=== PATIENT | male | born 1975 | race African-American/Black ===

== ENCOUNTER 2018-12-06 06:59 | Day surgery (SDC) | payer OTHER ==
--- OUTSIDE RECORDS SUMMARY | 2018-12-06 07:01 | XMS REPORT ---
:1975 Author Organization eClinicalWorks Care Team Providers Name Role Phone Zaheer Potts Provider Role Unavailable Allergies, Adverse Reactions, Alerts Substance Reaction Event Type Motrin burning stomach Drug Allergy Problems Problem Type Condition Code Onset Dates Condition Status Problem Mild intermittent asthma in adult J45.20 Active without complication Assessment Elevated blood pressure reading in R03.0 Active office with white coat syndrome, without diagnosis of hypertension Problem Pure hypercholesterolemia E78.00 Active Assessment Mild intermittent asthma in adult J45.20 Active without complication Assessment Seasonal allergic rhinitis, J30.2 Active unspecified trigger Assessment Pure hypercholesterolemia E78.00 Active Assessment Encounter for general adult medical Z00.00 Active examination without abnormal findings Medications Medication Code Code Instructions Start End Status Dosage System Date Date Vitamin B12 [facility] 88789710090 100 MCG Orally Active not defined Centrum [facility] 59309667230 - Orally Active not Specialist defined Energy Results No Known Results Summary Purpose eClinicalWorks Submission
--- OUTSIDE RECORDS SUMMARY | 2018-12-06 07:02 | XMS REPORT ---
:1975 Author Organization eClinicalWorks Care Team Providers Name Role Phone Zaheer Potts Provider Role Unavailable Allergies, Adverse Reactions, Alerts Substance Reaction Event Type Motrin burning stomach Drug Allergy Problems Problem Type Condition Code Onset Dates Condition Status Problem Pure hypercholesterolemia E78.00 Active Problem Mild intermittent asthma in adult J45.20 Active without complication Problem Marijuana abuse, continuous F12.10 Active Assessment Mild intermittent asthma in adult J45.20 Active without complication Assessment Acute eczema L30.9 Active Assessment Marijuana abuse, continuous F12.10 Active Medications Medication Code Code Instructions Start End Status Dosage System Date Date Vitamin B12 [facility] 20962280875 100 MCG Orally Active not defined Centrum [facility] 84269830859 - Orally Active not Specialist defined Energy Acyclovir [facility] 17433589503 800 MG Orally April 10, Active 1 tablet Five times a day 2017 Sertraline HCl [place] 63439502320 50 MG Orally April 10, Active 1 tablet Once a day 2017 Montelukast [facility] 05378407021 10 MG Orally Jun 21, Active 1 tablet Sodium Once a day 2017 Results No Known Results Summary Purpose eClinicalWorks Submission
--- OUTSIDE RECORDS SUMMARY | 2018-12-06 07:02 | XMS REPORT ---
:1975 Author Organization eClinicalWorks Care Team Providers Name Role Phone Zaheer Potts Provider Role Unavailable Allergies No Known Allergies Problems Problem Type Condition Code Onset Dates Condition Status Problem Pure hypercholesterolemia E78.00 Active Problem Mild intermittent asthma in adult J45.20 Active without complication Problem Marijuana abuse, continuous F12.10 Active Medications Medication Code Code Instructions Start End Status Dosage System Date Date Azithromycin [facility] 38922738512 500 MG Orally May 29, Jun 03, Active as directed Once a day 2017 2017 Results No Known Results Summary Purpose eClinicalWorks Submission
--- OUTSIDE RECORDS SUMMARY | 2018-12-06 07:02 | XMS REPORT ---
:1975 Author Organization eClinicalWorks Care Team Providers Name Role Phone Zaheer Potts Provider Role Unavailable Allergies, Adverse Reactions, Alerts Substance Reaction Event Type Motrin burning stomach Drug Allergy Problems Problem Type Condition Code Onset Dates Condition Status Assessment Vertigo R42 Active Problem Pure hypercholesterolemia E78.00 Active Problem Mild intermittent asthma in adult J45.20 Active without complication Problem Marijuana abuse, continuous F12.10 Active Assessment Mild intermittent asthma in adult J45.20 Active without complication Assessment Nausea R11.0 Active Assessment Marijuana abuse, continuous F12.10 Active Medications Medication Code Code Instructions Start End Status Dosage System Date Date Bismuth [facility] 40515666338 262 MG Orally Oct 12, Dec 11, Active 2 tablets Subsalicylate Four times a 2017 2019 as needed day Sertraline HCl [facility] 47758332871 50 MG Orally Active 1 tablet Once a day Centrum [facility] 15117248175 - Orally Active not defined Specialist [employer] Acyclovir [place] 24696083523 800 MG Orally April 10, Active 1 tablet Five times a 2018 day Acidophilus [facility] 15885589833 - Orally daily Oct 12March Active as directed Probiotic 2017, Complex 2019 Montelukast [facility] 46805884018 10 MG Orally Jun 21, Active 1 tablet Sodium Once a day 2018 Vitamin B12 [facility] 54469065850 100 MCG Orally Active not defined Results No Known Results Summary Purpose eClinicalWorks Submission
--- OUTSIDE RECORDS SUMMARY | 2018-12-06 07:02 | XMS REPORT ---
:1975 Author Organization eClinicalWorks Care Team Providers Name Role Phone Zaheer Potts Provider Role Unavailable Allergies No Known Allergies Problems Problem Type Condition Code Onset Dates Condition Status Problem Pure hypercholesterolemia E78.00 Active Problem Mild intermittent asthma in adult J45.20 Active without complication Problem Marijuana abuse, continuous F12.10 Active Assessment Marijuana abuse, continuous F12.10 Active Assessment Herpes zoster without complication B02.9 Active Medications Medication Code Code Instructions Start End Status Dosage System Date Date Centrum [facility] 62000172899 - Orally Active not Specialist defined Energy Vitamin B12 [facility] 28276629168 100 MCG Orally Active not defined Sertraline HCl [facility] 56976438806 50 MG Orally April 10, Active 1 tablet Once a day 2017 Acyclovir [facility] 45113240775 800 MG Orally April 10, Active 1 tablet Five times a day 2017 Results No Known Results Summary Purpose eClinicalWorks Submission
--- OUTSIDE RECORDS SUMMARY | 2018-12-06 07:02 | XMS REPORT ---
[...] in adult J45.20 Active without complication Assessment Marijuana abuse, continuous F12.10 Active Assessment Pure hypercholesterolemia E78.00 Active Medications Medication Code Code Instructions Start End Status Dosage System Date Date Sertraline HCl [facility] 14956544342 50 MG Orally April 10, Active 1 tablet Once a day 2017 Centrum [facility] 94305299078 - Orally Active not Specialist defined Energy Acyclovir [facility] 91699699436 800 MG Orally April 10, Active 1 tablet Five times a day 2018 Vitamin B12 [facility] 39211273583 100 MCG Orally Active not defined Results No Known Results Summary Purpose eClinicalWorks Submission
[2018-12-06] MEDS ORDERED: Ringers Lactate 1,000 ML IV ONE (07:25)
[2018-12-06] MEDS ORDERED: LIDOCAINE 1% MPF 5 ML VIAL ONE (08:09)
[2018-12-06] MEDS ORDERED: PROPOFOL 200 MG/20 ML VIAL IV ONE (08:09)
--- NOTE | 2018-12-06 20:06 | OP ---
Surgeon: Jeffrey Reina MD Procedure Performed: Esophagogastroduodenoscopy. Indication For Procedure: Nausea, vomiting, abdominal pain, and change in bowel habits. Plan For Anesthesia: Monitored anesthesia care. Complexity: Average. Technique: After obtaining informed consent from the patient explaining risks and complications, whi ch include, but are not limited to bleeding, infection, perforation, and anesthesia complication, the patient was placed in left lateral position and sedation was given. From then on, the scope was adv anced into the mouth and carefully guided up till the 3rd portion of the duodenum. Gradually the sco pe was withdrawn while carefully examining the mucosa. After the completion of examination and diagn ostic maneuvers, the scope and equipment were withdrawn and procedure terminated in a safe manner. Findings: Esophagus: No gross lesion was seen in the upper and mid esophagus. In the distal esopha natividad, a very mild Schatzki ring was seen. The Z-line was irregular. Biopsies were taken. No evidenc e of significant esophagitis was visualized. Stomach: Mild patchy erythema seen in the body and antrum. Antral and body biopsies taken. Duodenum: The bulb mucosa appeared a little granular. The scope was advanced to the 3rd portion and small bowel biopsies were taken to rule out celiac disease. Complications: None. Tolerance To Anesthesia: Excellent. Postoperative Diagnoses: Mild Schatzki ring and gastritis. Plan: 1.Await pathology results. 2.Oral PPI once a day. 3.Essentially, no findings visualized to explain the patient's symptoms which would indicate an alte rnate etiology. We would want to also rule out gallbladder disease. Therefore, we will receive the patient's recent ultrasound as well as strongly recommend to stop marijuana use as this could be lillie abis-induced cyclic vomiting syndrome. US/MODL Voice ID: [id number] Report ID: [id number]
== END 2018-12-06 09:18 | disposition home or self-care (01) ==
LOC: OR 06:59
PROVIDERS: ATTEND Internal Medicine Gastroenterology
PROC: 0DB88ZX Excision of Small Intestine, Via Natural or Artificial Opening Endoscopic, Diagnostic (ICD-10-PCS; 2018-12-06)
PROC: 0DB78ZX Excision of Stomach, Pylorus, Via Natural or Artificial Opening Endoscopic, Diagnostic (ICD-10-PCS; 2018-12-06)
PROC: 0DB68ZX Excision of Stomach, Via Natural or Artificial Opening Endoscopic, Diagnostic (ICD-10-PCS; 2018-12-06)
PROC: 0DB58ZX Excision of Esophagus, Via Natural or Artificial Opening Endoscopic, Diagnostic (ICD-10-PCS; principal; 2018-12-06 08:00)
DX: K29.50 Unspecified chronic gastritis without bleeding (principal); K21.0 Gastro-esophageal reflux disease with esophagitis; K22.2 Esophageal obstruction; F12.90 Cannabis use, unspecified, uncomplicated
CPT/HCPCS: 88305; 88312; J2704

== ENCOUNTER 2019-04-15 08:30 | Emergency (ER) | payer OTHER ==
--- OUTSIDE RECORDS SUMMARY | 2019-04-15 08:40 | XMS REPORT ---
[...] End Status Dosage System Date Date Centrum [facility] 53846034484 - Orally Active not Specialist defined Energy Vitamin B12 [facility] 73001690799 100 MCG Orally Active not defined Sertraline HCl [facility] 91964743154 50 MG Orally April 10, Active 1 tablet Once a day 2017 Acyclovir [facility] 96919023754 800 MG Orally April 10, Active 1 tablet Five times a day 2017 Results No Known Results Summary Purpose eClinicalWorks Submission
--- OUTSIDE RECORDS SUMMARY | 2019-04-15 08:40 | XMS REPORT ---
[...] Status Dosage System Date Date Vitamin B12 [facility] 90246948496 100 MCG Orally Active not defined Centrum [facility] 42609245399 - Orally Active not Specialist defined Energy Results No Known Results Summary Purpose eClinicalWorks Submission
--- OUTSIDE RECORDS SUMMARY | 2019-04-15 08:41 | XMS REPORT ---
[...] Status Dosage System Date Date Sertraline HCl [facility] 97914108869 50 MG Orally April 10, Active 1 tablet Once a day 2017 Centrum [facility] 99499528760 - Orally Active not Specialist defined Energy Acyclovir [facility] 33075996604 800 MG Orally April 10, Active 1 tablet Five times a day 2018 Vitamin B12 [facility] 25434000747 100 MCG Orally Active not defined Results No Known Results Summary Purpose eClinicalWorks Submission
--- OUTSIDE RECORDS SUMMARY | 2019-04-15 08:41 | XMS REPORT ---
[...] End Status Dosage System Date Date Bismuth [facility] 80444099155 262 MG Orally Oct 12, Dec 11, Active 2 tablets Subsalicylate Four times a 2017 2019 as needed day Sertraline HCl [facility] 30257784004 50 MG Orally Active 1 tablet Once a day Centrum [facility] 14579629169 - Orally Active not defined Specialist Energy Acyclovir ND 32613152289 800 MG Orally April 10, Active 1 tablet Five times a 2018 day Acidophilus [facility] 89850498479 - Orally daily Oct 12March Active as directed Probiotic 2017, Complex 2019 Montelukast [facility] 08028873354 10 MG Orally Jun 21, Active 1 tablet Sodium Once a day 2017 Vitamin B12 [facility] 22488678730 100 MCG Orally Active not defined Results No Known Results Summary Purpose eClinicalWorks Submission
--- OUTSIDE RECORDS SUMMARY | 2019-04-15 08:41 | XMS REPORT ---
[...] Status Dosage System Date Date Vitamin B12 [facility] 02233938931 100 MCG Orally Active not defined Centrum [facility] 05440721534 - Orally Active not Specialist defined Energy Acyclovir [facility] 77751042637 800 MG Orally April 10, Active 1 tablet Five times a day 2017 Sertraline HCl ND 29419662403 50 MG Orally April 10, Active 1 tablet Once a day 2017 Montelukast [facility] 20752058095 10 MG Orally Jun 21, Active 1 tablet Sodium Once a day 2017 Results No Known Results Summary Purpose eClinicalWorks Submission
--- OUTSIDE RECORDS SUMMARY | 2019-04-15 08:41 | XMS REPORT ---
[...] End Status Dosage System Date Date Azithromycin [facility] 51792081091 500 MG Orally May 29, Jun 03, Active as directed Once a day 2017 2017 Results No Known Results Summary Purpose eClinicalWorks Submission
[2019-04-15] MEDS ORDERED: LIDOCAINE 1% MPF 30 ML VIAL ONE (09:01)
--- NOTE | 2019-04-15 09:13 | EDPHYS ---
Physician Documentation [facility] Name: Talib Boyd Jr Age: 44 yrs Sex: Male : 1975 Arrival Date: 04/15/2019 Time: 08:32 Bed 5 Private MD: Zaheer Potts ED Physician Kamron Bustillo HPI: 04/15 09:00 This 44 yrs old Black Male presents to ER via Ambulatory with complaints of Abscess. jr8 09:00 The patient presents with an abscess of the left groin/mons pubis region of pelvis. jr8 Description: The affected area is approximately 2 cm(s), fluctuant. Onset: The symptoms/episode began/occurred 5 day(s) ago. Associated signs and symptoms: Pertinent positives: drainage, Pertinent negatives: fever. Modifying factors: the symptoms are alleviated by nothing, the symptoms are aggravated by pressure. The patient has not recently seen a physician. was draining previously. Historical: - Allergies: 08:40 Motrin; ss - Home Meds: 08:40 None [Active]; ss - PMHx: 08:40 Hypertension; ss - PSHx: 08:40 None; ss - Immunization history:: Adult Immunizations up to date, Adult Immunizations. - Social history:: Smoking status: Patient/guardian denies using tobacco, Smoking status: Patient/guardian denies using tobacco, Patient/guardian denies using alcohol. - Ebola Screening: : Patient denies exposure to infectious person Patient denies travel to an Ebola-affected area in the 21 days before illness onset Patient negative for fever greater than or equal to 101.5 degrees Fahrenheit, and additional compatible Ebola Virus Disease symptoms Patient denies exposure to infectious person Patient denies travel to an Ebola-affected area in the 21 days before illness onset. ROS: 09:00 Constitutional: Negative for fever, chills, and weight loss, Cardiovascular: Negative jr8 for chest pain, palpitations, and edema, Respiratory: Negative for shortness of breath, cough, wheezing, and pleuritic chest pain, Abdomen/GI: Negative for abdominal pain, nausea, vomiting, diarrhea, and constipation, MS/Extremity: Negative for injury and deformity. 09:00 Skin: Positive for abscess, Negative for Exam: 09:00 Constitutional: This is a well developed, well nourished patient who is awake, alert, jr8 and in no acute distress. Eyes: Pupils equal round and reactive to light, extra-ocular motions intact. Lids and lashes normal. Conjunctiva and sclera are non-icteric and not injected. Cornea within normal limits. Periorbital areas with no swelling, redness, or edema. ENT: Nares patent. No nasal discharge, no septal abnormalities noted. Tympanic membranes are normal and external auditory canals are clear. Oropharynx with no redness, swelling, or masses, exudates, or evidence of obstruction, uvula midline. Mucous membranes moist. Neck: Trachea midline, no thyromegaly or masses palpated, and no cervical lymphadenopathy. Supple, full range of motion without nuchal rigidity, or vertebral point tenderness. No Meningismus. Chest/axilla: Normal chest wall appearance and motion. Nontender with no deformity. No lesions are appreciated. Cardiovascular: Regular rate and rhythm with a normal S1 and S2. No gallops, murmurs, or rubs. Normal PMI, no JVD. No pulse deficits. Respiratory: Lungs have equal breath sounds bilaterally, clear to auscultation and percussion. No rales, rhonchi or wheezes noted. No increased work of breathing, no retractions or nasal flaring. Abdomen/GI: Soft, non-tender, with normal bowel sounds. No distension or tympany. No guarding or rebound. No evidence of tenderness throughout. Back: No spinal tenderness. No costovertebral tenderness. Full range of motion. MS/ Extremity: Pulses equal, no cyanosis. Neurovascular intact. Full, normal range of motion. Neuro: Awake and alert, GCS 15, oriented to person, place, time, and situation. Cranial nerves II-XII grossly intact. Motor strength 5/5 in all extremities. Sensory grossly intact. Cerebellar exam normal. Normal gait. 09:00 Skin: approximately 2-3 cm abscess to left mons pubis region with fluctuance and small pustular lesion to center of wound, surrounded by erythema and firmness. No drainage able to be expressed.. Vital Signs: 08:40 BP 146 / 108; Pulse 103; Resp 17; Temp 98.6(TE); Pulse Ox 99% on R/A; Weight 91.63 kg; ss Height 5 ft. 10 in. (177.80 cm); Pain 8/10; 09:19 BP 145 / 90; Pulse 90; Resp 18; Pulse Ox 100% on R/A; 08:40 Body Mass Index 28.98 (91.63 kg, 177.80 cm) ss Procedures: 09:00 I \T\ D: Incision and drainage was performed for an abscess of the left mons pubis jr8 Prepped with Betadine, Anesthetized with 2.5 ml's 1% Lidocaine. Incised with #11 blade. Drained small amount purulent fluid. bloody fluid. Loculations removed. Packed with iodoform gauze, Dressing: sterile 4x4 gauze, the patient tolerated the procedure well. MDM: 08:44 Patient medically screened. jr8 09:00 Differential diagnosis: abscess, cellulitis. Data reviewed: vital signs, nurses notes, jr8 and as a result, I will discharge patient. Data interpreted: Pulse oximetry: on room air is 98 %. Interpretation: normal. Response to treatment: the patient's symptoms have markedly improved after treatment. 09:11 Counseling: I had a detailed discussion with the patient and/or guardian regarding: the jr8 historical points, exam findings, and any diagnostic results supporting the discharge/admit diagnosis, the need for outpatient follow up, a family practitioner, to return to the emergency department if symptoms worsen or persist or if there are any questions or concerns that arise at home. Administered Medications: No medications were administered Disposition: 04/16 06:58 Co-signature as Attending Physician, Kamron Bustillo MD I agree with the assessment and wa plan of care. Disposition: 04/15/19 09:12 Discharged to Home. Impression: Cutaneous abscess of other sites. - Condition is Stable. - Discharge Instructions: Skin Abscess, Incision and Drainage. - Prescriptions for Bactrim DS 800- 160 mg Oral Tablet - take 1 tablet by ORAL route every 12 hours for 10 days; 20 tablet. - Medication Reconciliation Form, Thank You Letter, Antibiotic Education, Prescription Opioid Use form. - Follow up: Zaheer Potts MD; When: 48 Hours; Reason: Wound Recheck, Recheck today's complaints, Continuance of care, Re-evaluation by your physician. - Problem is new. - Symptoms have improved. Signatures: Jennie Shoemaker RN RN Jerry Meyers PA PA jr8 Sharif Chambers RN RN hj Appiah, William, MD MD wa Corrections: (The following items were deleted from the chart) 04/15 09:10 09:00 The patient presents with an abscess of the left groin/pelvis, jr8 jr8 : 09:00 Differential diagnosis: abscess, cellulitis, jr8 jr8 : 09:00 Data reviewed: vital signs, nurses notes, jr8 jr8 : 09:00 Data interpreted: Pulse oximetry: is 98 %. Interpretation: normal. jr8 jr8 09:22 09:12 04/15/2019 09:12 Discharged to Home. Impression: Cutaneous abscess of other hj sites. Condition is Stable. Forms are Medication Reconciliation Form, Thank You Letter, Antibiotic Education, Prescription Opioid Use. Follow up: Zaheer Potts; When: 48 Hours; Reason: Wound Recheck, Recheck today's complaints, Continuance of care, Re-evaluation by your physician. Problem is new. Symptoms have improved. jr8
--- NOTE | 2019-04-15 09:13 | ER ---
Nurse's Notes [facility] Name: Talib Boyd Jr Age: 44 yrs Sex: Male : 1975 Arrival Date: 04/15/2019 Time: 08:32 Bed 5 Private MD: Zaheer Potts Diagnosis: Cutaneous abscess of other sites Presentation: 04/15 08:39 Presenting complaint: Patient states: abscess to L groin area x 5 days. Transition of ss care: patient was not received from another setting of care. Onset of symptoms was April 10, 2019. Risk Assessment: Do you want to hurt yourself or someone else? Patient reports no desire to harm self or others. Initial Sepsis Screen: Does the patient meet any 2 criteria? No. Patient's initial sepsis screen is negative. Does the patient have a suspected source of infection? No. Patient's initial sepsis screen is negative. Care prior to arrival: None. 08:39 Method Of Arrival: Ambulatory 08:39 Acuity: MELANIE 4 08:39 Risk Assessment: Do you want to hurt yourself or someone else? Patient reports no hj desire to harm self or others. Initial Sepsis Screen: Does the patient meet any 2 criteria? Yes Does the patient have a suspected source of infection? Yes: Skin breakdown/wound. Care prior to arrival: None. Historical: - Allergies: 08:40 Motrin; ss - Home Meds: 08:40 None [Active]; ss - PMHx: 08:40 Hypertension; ss - PSHx: 08:40 None; ss - Immunization history:: Adult Immunizations up to date, Adult Immunizations. - Social history:: Smoking status: Patient/guardian denies using tobacco, Smoking status: Patient/guardian denies using tobacco, Patient/guardian denies using alcohol. - Ebola Screening: : Patient denies exposure to infectious person Patient denies travel to an Ebola-affected area in the 21 days before illness onset Patient negative for fever greater than or equal to 101.5 degrees Fahrenheit, and additional compatible Ebola Virus Disease symptoms Patient denies exposure to infectious person Patient denies travel to an Ebola-affected area in the 21 days before illness onset. Screenin:40 Abuse screen: Denies threats or abuse. Denies injuries from another. Nutritional hj screening: No deficits noted. Tuberculosis screening: No symptoms or risk factors identified. Fall Risk None identified. Assessment: 08:38 General: Appears in no apparent distress. uncomfortable, Behavior is calm, cooperative, hj appropriate for age. Pain: Complains of pain in pelvis. Neuro: Level of Consciousness is awake, alert, obeys commands, Oriented to person, place, time, situation, Appropriate for age. Cardiovascular: Denies chest pain, Capillary refill < 3 seconds Patient's skin is warm and dry. Respiratory: Airway is patent Respiratory effort is even, unlabored, Respiratory pattern is regular, symmetrical. GI: No signs and/or symptoms were reported involving the gastrointestinal system. : No signs and/or symptoms were reported regarding the genitourinary system. EENT: No signs and/or symptoms were reported regarding the EENT system. Derm: Abscess located on pelvis Reports. Musculoskeletal: Reports pain in pelvis. 08:57 Reassessment: provider in room for I\T\D;. hj Vital Signs: 08:40 BP 146 / 108; Pulse 103; Resp 17; Temp 98.6(TE); Pulse Ox 99% on R/A; Weight 91.63 kg; ss Height 5 ft. 10 in. (177.80 cm); Pain 8/10; 09:19 BP 145 / 90; Pulse 90; Resp 18; Pulse Ox 100% on R/A; hj 08:40 Body Mass Index 28.98 (91.63 kg, 177.80 cm) ED Course: 08:32 Patient arrived in ED. mr 08:33 Zaheer Potts MD is Private Physician. mr 08:38 Sharif Chambers, ZORA is Primary Nurse. hj 08:39 Jerry Meyers PA is PHCP. jr8 08:39 Kamron Bustillo MD is Attending Physician. jr8 08:39 Arm band placed on right wrist. hj 08:40 Triage completed. ss 08:40 Patient has correct armband on for positive identification. Placed in gown. Bed in low hj position. Call light in reach. Side rails up X 1. Adult w/ patient. 09:12 Zaheer Potts MD is Referral Physician. jr8 09:17 No provider procedures requiring assistance completed. Patient did not have IV access hj during this emergency room visit. Administered Medications: No medications were administered Outcome: 09:12 Discharge ordered by MD. melgar 09:18 Discharged to home ambulatory. sharlene 09:18 Condition: stable 09:18 Discharge instructions given to patient, Instructed on discharge instructions, follow up and referral plans. medication usage, Demonstrated understanding of instructions, follow-up care, medications, Prescriptions given X 1. 09:22 Patient left the ED. Signatures: Lilian Grimes Shelby, RN RN Jerry Meyers PA PA jr8 Joaquin, Henry, RN RN
== END 2019-04-15 09:22 | disposition home or self-care (01) ==
LOC: ER 08:30
PROC: 0J9C0ZZ Drainage of Pelvic Region Subcutaneous Tissue and Fascia, Open Approach (ICD-10-PCS; principal; 2019-04-15)
DX: L02.214 Cutaneous abscess of groin (principal); I10 Essential (primary) hypertension; Z88.6 Allergy status to analgesic agent
CPT/HCPCS: 99282